=== PATIENT | female | born 1945 | race Caucasian/White ===

== ENCOUNTER 2017-12-11 11:47 | Emergency (ER) | payer MEDICARE, OTHER ==
[~2017-12-11] VITALS: Ht 160 cm; Wt 79.4 kg
[~2017-12-11 11:47] MED LIST: ADV250/50 INH; AMLO2.5T74 PO; AMLO2.5T75 PO; BEPO10DR3 OP; CA C1TAB85 PO; CHOL100058 PO; CICL6.1H NS; CLON-303 *; DICY10CA62 PO; FRO2.5PT PO; FROV2.5T6 PO; GENTAMICIN NASAL; LAMO100T52 PO; LEVO750T44 PO; LOR10 PO; LORA10TA2 PO; MET50 PO; METO25TA93 PO; MON10 PO; MONT10TA PO; NAS20R NS; NOR5/325 PO; OMEP-153 PO; OMEP40CA48 PO; OXYC-865 PO; PRE20 PO; PRED-1 PO; QUE25 PO; SIMV-49 PO; SOLI10TA8 PO; SPIR25TA78 PO; TOLT4CAP; TOLT4CAP13 PO; TOPI50TA99 PO; TRA50 PO; TRAZ-133 PO; TRAZ-163 PO; VENL37.594 PO; WARF5TAB23 PO; [UNRECOGNIZED DRUG - CODE] PO
--- NOTE | 2017-12-11 11:56 | ER Report ---
History and Physical Time Seen By MD: 11:56 HPI/ROS CHIEF COMPLAINT: Left-sided chest pain HISTORY OF PRESENT ILLNESS: 72-year-old female patient presents to emergency room with complaint of left-sided chest pain. Patient states that started this morning. She states when she woke up she was having pain seemed to be more towards the left shoulder. She states that since the day has progressed the pain has moved over to the left side of the chest enhanced since some pain shooting down the left arm. Patient denies any shortness of breath, although she states she did recently get over the flu at which time she states that she did have improvement in the shortness of breath. Patient denies having any fevers, chills, nausea, vomiting or diarrhea. Patient has not taken any medication for this. Patient states that she's been up moving around he states that did not increase her pain. REVIEW OF SYSTEMS: Respiratory: No cough, no dyspnea. Cardiovascular: As noted above Gastrointestinal: No vomiting, no abdominal pain. Musculoskeletal: No back pain. Allergies: Coded Allergies: diphenhydramine (Verified Allergy, Mild, 09/27/17) Home Meds Active Scripts Ibuprofen (IBUPROFEN) 600 Mg Tablet, 1 TAB PO Q6H, #28 TAB Prov:JESSEE RYAN [employer] ST[employer]GR[employer]HER 12/11/17 Reported Medications Montelukast Sodium (SINGULAIR) 10 Mg Tablet, 1 TAB PO QDAY Y for ALLERGY SYMPTOMS, TAB 09/27/17 Frovatriptan Succinate (FROVA) 2.5 Mg Tablet, 2.5 MG PO PRN 09/27/17 Trazodone Hcl (TRAZODONE HCL) 100 Mg Tablet, 100 MG PO QHS, TAB 09/27/17 Simvastatin (SIMVASTATIN) 20 Mg Tablet, 20 MG PO HS, TAB 09/27/17 Tolterodine Tartrate (Tolterodine Tartrate ER) 4 Mg Cap.er.24h, QHS 09/27/17 Omeprazole (OMEPRAZOLE) 40 Mg Capsule.dr, 40 MG PO QDAY, CAP 09/27/17 Warfarin Sodium (WARFARIN SODIUM) 5 Mg Tablet, 2.5 MG PO QWEEK, TAB 05/03/17 Venlafaxine Hcl (EFFEXOR XR) 37.5 Mg Cap.er.24h, 37.5 MG PO DAILY 07/20/13 Lamotrigine (LAMOTRIGINE) 100 Mg Tablet, 100 MG PO BID 07/20/13 Temazepam (RESTORIL) 30 Mg Capsule, 30 MG PO HS 07/20/13 Cholecalciferol (Vitamin D3) (VITAMIN D) 1,000 Unit Capsule, 1000 UNIT PO HS 07/20/13 Metoprolol Tartrate (METOPROLOL TARTRATE) 25 Mg Tablet, 0.5 TAB PO BID TAKE ONE TABLET BY MOUTH TWICE A DAY 07/20/13 Amlodipine Besylate (NORVASC) 2.5 Mg Tablet, 1 TAB PO QDAY TAKE ONE TABLET BY MOUTH EVERY DAY at pm 07/20/13 Past Medical/Surgical History Patient has a past medical history of migraines, hypertension, hyperlipidemia, dry cough, multiple rib fractures, anxiety, depression. Patient has a surgical history of facial bone surgery, tonsillectomy, partial hysterectomy, D&C 2, P 3, stomach polyps, pacemaker placed, initial valve replaced. Patient has a family medical history of cancer, CAD. Reviewed Nurses Notes: Yes Hx Smoking: No Smoking Status: Never Smoker Exposure to Second Hand Smoke?: No Constitutional Vital Sign - Last 24 Hours 12/11/17 12/11/17 12/11/17 12/11/17 11:47 11:52 11:53 12:00 Temp 98.1 Pulse ??? 90 Resp 18 B/P (MAP) 151/88 151/88 (109) 142/83 (102) Pulse Ox 88 O2 Delivery Room Air 12/11/17 12/11/17 12/11/17 12/11/17 12:02 12:17 12:30 12:32 Pulse 79 ??? 81 Resp 27 7 B/P (MAP) 159/85 (109) Pulse Ox 94 92 12/11/17 12/11/17 12/11/17 12/11/17 12:47 13:00 13:02 13:07 Pulse 83 ??? 85 Resp 5 21 B/P (MAP) ???/??? (1665) Pulse Ox 90 91 12/11/17 12/11/17 12/11/17 12/11/17 13:22 13:30 13:37 13:52 Pulse 81 86 80 Resp 16 10 18 B/P (MAP) 157/90 (112) Pulse Ox 92 86 12/11/17 12/11/17 12/11/17 12/11/17 14:00 14:07 14:22 14:27 Pulse 78 79 80 Resp 9 12 B/P (MAP) ???/??? (8965) 12/11/17 12/11/17 14:32 14:32 Temp 98.4 Pulse ??? Physical Exam General Appearance: The patient is alert, has no immediate need for airway protection and no current signs of toxicity. ENT: Tympanic membranes are pearly-bhatti, auditory canals are patent, mucus mucous membranes are moist. Respiratory: Chest is non tender, lungs are clear to auscultation. Cardiac: regular rate and rhythm Gastrointestinal: Abdomen is soft and non tender, no masses, bowel sounds normal. Musculoskeletal: Neck: Neck is supple and non tender. Extremities have full range of motion and are non tender. Patient did have some tenderness right around the shoulder. Skin: No rashes or lesions. DIFFERENTIAL DIAGNOSIS: After history and physical exam differential diagnosis was considered for chest pain including but not limited to myocardial ischemia, pericarditis pulmonary embolus, chest wall pain, pleural inflammation and pulmonary infectious causes. Medical Decision Making Data Points Result Diagram: 12/11/17 1200 12/11/17 1200 Laboratory Hematology Test 12/11/17 12:00 12/11/17 13:48 Red Blood Count 4.21 M/uL (4.17-5.56) Mean Corpuscular Volume 96.8 fL (80.0-96.0) Mean Corpuscular Hemoglobin 32.7 pg (26.0-33.0) Mean Corpuscular Hemoglobin Concent 33.8 g/dL (32.0-36.0) Red Cell Distribution Width 13.6 % (11.5-14.5) Mean Platelet Volume 7.2 fL (7.2-11.1) Neutrophils (%) (Auto) 56.2 % (39.4-72.5) Lymphocytes (%) (Auto) 30.4 % (17.6-49.6) Monocytes (%) (Auto) 10.8 % (4.1-12.4) Eosinophils (%) (Auto) 1.2 % (0.4-6.7) Basophils (%) (Auto) 1.4 % (0.3-1.4) Nucleated RBC Relative Count (auto) 0.1 /100WBC Neutrophils # (Auto) 3.5 K/uL (2.0-7.4) Lymphocytes # (Auto) 1.9 K/uL (1.3-3.6) Monocytes # (Auto) 0.7 K/uL (0.3-1.0) Eosinophils # (Auto) 0.1 K/uL (0.0-0.5) Basophils # (Auto) 0.1 K/uL (0.0-0.1) Nucleated RBC Absolute Count (auto) 0.01 K/uL Prothrombin Time 15.3 seconds (12.0-14.4) Prothromb Time International Ratio 1.20 Activated Partial Thromboplast Time 27 seconds (23-35) Sodium Level 138 mmol/L (137-145) Potassium Level 4.1 mmol/L (3.5-5.0) Chloride Level 96 mmol/L (98-107) Carbon Dioxide Level 29 mmol/L (22-31) Blood Urea Nitrogen 17 mg/dl (7-18) Creatinine 0.90 mg/dl (0.52-1.04) Glomerular Filtration Rate Calc > 60.0 Random Glucose 83 mg/dl (75-110) Calcium Level 9.6 mg/dl (8.4-10.2) Total Bilirubin 0.6 mg/dl (0.2-1.3) Aspartate Amino Transf (AST/SGOT) 26 U/L (0-35) Alanine Aminotransferase (ALT/SGPT) 30 U/L (0-56) Alkaline Phosphatase 68 U/L (0-126) B-Type Natriuretic Peptide 126 pg/ml (0-100) Total Protein 7.4 gm/dl (6.3-8.2) Albumin 4.3 g/dl (3.5-5.0) Troponin I < 0.012 ng/ml Chemistry Test 12/11/17 12:00 12/11/17 13:48 White Blood Count 6.2 k/uL (4.5-11.0) Red Blood Count 4.21 M/uL (4.17-5.56) Hemoglobin 13.8 g/dL (12.0-16.0) Hematocrit 40.8 % (34.0-47.0) Mean Corpuscular Volume 96.8 fL (80.0-96.0) Mean Corpuscular Hemoglobin 32.7 pg (26.0-33.0) Mean Corpuscular Hemoglobin Concent 33.8 g/dL (32.0-36.0) Red Cell Distribution Width 13.6 % (11.5-14.5) Platelet Count 239 K/uL (150-450) Mean Platelet Volume 7.2 fL (7.2-11.1) Neutrophils (%) (Auto) 56.2 % (39.4-72.5) Lymphocytes (%) (Auto) 30.4 % (17.6-49.6) Monocytes (%) (Auto) 10.8 % (4.1-12.4) Eosinophils (%) (Auto) 1.2 % (0.4-6.7) Basophils (%) (Auto) 1.4 % (0.3-1.4) Nucleated RBC Relative Count (auto) 0.1 /100WBC Neutrophils # (Auto) 3.5 K/uL (2.0-7.4) Lymphocytes # (Auto) 1.9 K/uL (1.3-3.6) Monocytes # (Auto) 0.7 K/uL (0.3-1.0) Eosinophils # (Auto) 0.1 K/uL (0.0-0.5) Basophils # (Auto) 0.1 K/uL (0.0-0.1) Nucleated RBC Absolute Count (auto) 0.01 K/uL Prothrombin Time 15.3 seconds (12.0-14.4) Prothromb Time International Ratio 1.20 Activated Partial Thromboplast Time 27 seconds (23-35) Glomerular Filtration Rate Calc > 60.0 Calcium Level 9.6 mg/dl (8.4-10.2) Total Bilirubin 0.6 mg/dl (0.2-1.3) Aspartate Amino Transf (AST/SGOT) 26 U/L (0-35) Alanine Aminotransferase (ALT/SGPT) 30 U/L (0-56) Alkaline Phosphatase 68 U/L (0-126) B-Type Natriuretic Peptide 126 pg/ml (0-100) Total Protein 7.4 gm/dl (6.3-8.2) Albumin 4.3 g/dl (3.5-5.0) Troponin I < 0.012 ng/ml Coagulation Test 12/11/17 12:00 Prothrombin Time 15.3 seconds Prothromb Time International Ratio 1.20 Activated Partial Thromboplast Time 27 seconds EKG/Imaging EKG Interpretation 12 lead EKG: Rhythm: normal sinus rhythm [place]: normal QRS: White QRS noted. ST segments: normal Imaging 2 VIEWS CHEST INDICATION: Left-sided chest pain. COMPARISON: 09/27/2017. FINDINGS: Cardiomediastinal silhouette and pulmonary vessels within normal limits. Sternotomy changes. Right subclavian pacemaker remains in place and unchanged. Valve replacement changes. There is no focal infiltrate or lobar consolidation. There is no pneumothorax or pleural effusion. No nodule. Some mild scarring seen in both lower lobes. Upper abdomen is unremarkable. No acute bony abnormality. Old right rib fractures. Previous fracture proximal right humerus. IMPRESSION: 1. No acute cardiopulmonary process. Report Dictated By: Gustavo Shell at 12/11/2017 12:50 PM Report E-Signed By: Gustavo Shell at 12/11/2017 12:52 PM ED Course/Re-evaluation ED Course Patient was admitted and examined, history and physical were obtained. Frontal diagnoses were considered. On examination patient did have tenderness along the pectoralis muscle just adjacent to the shoulder. Workup for chest pain was done including CBC, CMP, troponin, EKG, chest x-ray. Lab results and imaging results were negative. I did go ahead and repeat a troponin at a four-hour jackeline. That was also negative. I discussed the findings with the patient and her . We will go ahead and discharge him home at this time. We will place her on an anti-inflammatory for her pain. I believe this is likely a strain of her pectoralis muscle. I discussed this with the patient and her they verbalized understanding and agreement with plan. Decision to Disposition Date: Dec 11, 2017 Decision to Disposition Time: 14:20 Depart Departure Latest Vital Signs Vital Signs Date Time Temp Pulse Resp B/P (MAP) Pulse Ox O2 Delivery O2 Flow Rate FiO2 12/11/17 14:32 98.4 12/11/17 14:32 ??? 12/11/17 14:22 12 12/11/17 14:00 ???/??? (1665) 12/11/17 13:37 86 12/11/17 11:52 Room Air Impression: Primary Impression: Chest pain Condition: Improved Disposition: HOME OR SELF-CARE Referrals: KENNETH CORDERO MD (PCP) New Scripts Ibuprofen (IBUPROFEN) 600 Mg Tablet 1 TAB PO Q6H, #28 TAB Prov: JESSEE RYAN 12/11/17 Patient Instructions: Chest Wall Pain (ED) Additional Instructions: Limit activity by pain. Increase fluid intake. Get plenty of rest. Return to the ER if condition worsens. Take the medication as prescribed. Follow up with your primary care provider in the next week. Problem Qualifiers Primary Impression: Chest pain Chest pain type: other chest pain Qualified Codes: R07.89 - Other chest pain JESSEE RYAN Dec 11, 2017 11:56
[2017-12-11] MEDS ORDERED: ASPIRIN 81 MG CHEW PO ONE (12:05)
[2017-12-11 12:13] LABS: PLATELET COUNT, AUTOMATED 239 K/uL (150-450)
[2017-12-11 12:18] LABS: INR 1.2
--- NOTE | 2017-12-11 12:19 | EKG ---
FACILITY: [facility] PATIENT NAME: KENNY MCELROY : [id number] MR: [id number] V: [id number] EXAM DATE: ORDERING PHYSICIAN: JESSEE RYAN TECHNOLOGIST: Feliberto Mccrary Reason : Blood Pressure : / mmHG Vent. Rate : 078 BPM Atrial Rate : 078 BPM P-R Int : 192 ms QRS Dur : 142 ms QT Int : 438 ms P-R-T Axes : 046 -70 074 degrees QTc Int : 499 ms Atrial sensing ventricular paced rhythm When compared with ECG of 27-SEP-2017 17:28, Unchanged Confirmed by PHILIP ISSA ([id number]) on 12/11/2017 7:16:52 PM Referred By: Confirmed By:PHILIP ISSA
--- NOTE | 2017-12-11 12:56 | RADIOLOGY IMAGING REPORT ---
FACILITY: [facility] PATIENT NAME: Shanae Watkins : 1945 MR: [id number] V: [id number] EXAM DATE: ORDERING PHYSICIAN: JESSEE RYAN TECHNOLOGIST: Location: [facility] Patient: Shanae Watkins : 1945 Visit/Account:[id number] Date of Sevice: 12/11/2017 2 VIEWS CHEST INDICATION: Left-sided chest pain. COMPARISON: 09/27/2017. FINDINGS: Cardiomediastinal silhouette and pulmonary vessels within normal limits. Sternotomy changes. Right murrell bclavian pacemaker remains in place and unchanged. Valve replacement changes. There is no focal infiltrate or lobar consolidation. There is no pneumothorax or pleural effusion. No nodule. Some mild scarring seen in both lower lobes. Upper abdomen is unremarkable. No acute bony abnormality. Old right rib fractures. Previous fracture proximal right humerus. IMPRESSION: 1. No acute cardiopulmonary process. Report Dictated By: Gustavo Shell at 12/11/2017 12:50 PM Report E-Signed By: Gustavo Shell at 12/11/2017 12:52 PM WSN:[id number]
[2017-12-11] MEDS ORDERED: IBUP600T22 PO (14:26)
== END 2017-12-11 14:37 | disposition home or self-care (01) ==
LOC: ER 11:55
DX: R07.89 Other chest pain (principal)
CPT/HCPCS: 36415; 71046; 83880; 84484; 85025; 85610; 85730; 93005; 99284; A9270; 82040; 82247; 82310; 82374; 82435; 82565; 82947; 84075; 84132; 84155; 84295; 84450; 84460; 84520

== ENCOUNTER → 2017-12-26 | Outpatient (CLI) | payer MEDICARE, OTHER ==
[~2017-12-26] MED LIST changes: +IBUP600T22 PO; +IOPAMIDOL 76% 75 ML INFUS BTL 75 ML ONE
--- NOTE | 2017-12-26 16:38 | RADIOLOGY IMAGING REPORT ---
FACILITY: [facility] [place] PATIENT NAME: Shanae Watkins : 1945 MR: [id number] V: [id number] EXAM DATE: ORDERING PHYSICIAN: MARCELO HUANG TECHNOLOGIST: Location: [facility] Patient: Shanae Watkins : 1945 Visit/Account:[id number] Date of Sevice: 12/26/2017 EXAMINATION: CT Head without intravenous contrast CT Head with intravenous contrast HISTORY: Memory loss. Altered mental status. Headache. TECHNIQUE: Contiguous axial images were obtained from the skull base to the vertex before and after IV contrast. Sagittal and coronal reformatted images are also submitted. One of the following dose optimization techniques was utilized in the performance of this exam: Autom ated exposure control; adjustment of the mA and/or kV according to the patient's size; or use of an i terative reconstruction technique. Specific details can be referenced in the facility's radiology C T exam operational policy. CONTRAST: 75 mL of IV Isovue-370 COMPARISON: None. FINDINGS: Brain volume: Normal. Ventricles: Negative. Acute ischemic changes: None. Hemorrhage: None. Masses / edema: None. Enhancement: Negative. Choi-white: Small focus of encephalomalacia in the right superior cerebellum. Otherwise negative. White matter: Negative. Vessels: Bilateral carotid siphon calcifications. Otherwise negative. Extra-axial: Negative. Calvarium / skull base: Negative. Visualized sinuses / orbits: Intraosseous screws in the left orbital rim. IMPRESSION: No acute intracranial abnormality or mass. Report Dictated By: Shar Leslie MD at 12/26/2017 4:29 PM Report E-Signed By: Shar Leslie MD at 12/26/2017 4:34 PM WSN:[id number]
== END ==
LOC: CT 03:34
PROVIDERS: ATTEND Family Medicine
DX: I65.23 Occlusion and stenosis of bilateral carotid arteries (principal); G93.89 Other specified disorders of brain; Z96.9 Presence of functional implant, unspecified
CPT/HCPCS: 36415; 70470; 82565; Q9967

== ENCOUNTER → 2017-12-30 | Outpatient (REF) | payer MEDICARE, OTHER ==
[~2017-12-30] MED LIST changes: -IOPAMIDOL 76% 75 ML INFUS BTL 75 ML ONE
== END ==
LOC: ZZSTITCHES 17:27
PROVIDERS: ATTEND Physician Assistant
DX: R35.0 Frequency of micturition (principal); R30.0 Dysuria
CPT/HCPCS: 87088

== ENCOUNTER 2018-01-06 14:58 | Emergency (ER) | payer MEDICARE, OTHER ==
[~2018-01-06 14:58] MED LIST changes: -GLUC1TAB78; -OMEG-96 PO
--- NOTE | 2018-01-06 15:09 | ER Report ---
History and Physical Time Seen By MD: 15:04 (ROSENDO SANTIAGO MD) HPI/ROS CHIEF COMPLAINT: Fall HISTORY OF PRESENT ILLNESS: 72-year-old female on Coumadin for heart problems presents with laceration to posterior scalp after fall states lost balance while cleaning a high shelf and fell down one step may have twisted her knee left knee hurts most severely no headache nausea vomiting neck pain or stiffness however she is bleeding from a lack on her scalp per EMS who provided pressure dressing for the ride over. Has other concerns or complaints today no syncope no loss of consciousness and no seizure activity. No neurological deficits. Receive 5 mg of morphine prior to arrival by EMS. REVIEW OF SYSTEMS: Constitutional: No fever, no chills. Eyes: No discharge. ENT: No sore throat. Cardiovascular: No chest pain, no palpitations. Respiratory: No cough, no shortness of breath. Gastrointestinal: No abdominal pain, no vomiting. Genitourinary: No hematuria. Musculoskeletal: Left knee pain difficulty with straightening otherwise negative Skin: No rashes. Neurological: No headache. No focal neurological deficits (ROSENDO SANTIAGO MD) Allergies: Coded Allergies: diphenhydramine (Verified Allergy, Mild, 01/06/18) Home Meds Active Scripts Ibuprofen (IBUPROFEN) 600 Mg Tablet, 1 TAB PO Q6H, #28 TAB Prov:JESSEE RYAN SOFTWARE SALES MANAGER 12/11/17 Reported Medications Glucosamine/D3/Boswellia Veronica (Osteo Bi-Flex Tablet) 1,500 Mg-400 Unit-100 Mg Tablet 01/06/18 Holstein-3 Fatty Acids/Fish Oil (OMEGA 3 1,000 MG SOFTGEL) 1 Each Capsule, 1 EACH PO QDAY, CAPSULE 01/06/18 Montelukast Sodium (SINGULAIR) 10 Mg Tablet, 1 TAB PO QDAY Y for ALLERGY SYMPTOMS, TAB 09/27/17 Frovatriptan Succinate (FROVA) 2.5 Mg Tablet, 2.5 MG PO PRN 09/27/17 Trazodone Hcl (TRAZODONE HCL) 100 Mg Tablet, 100 MG PO QHS, TAB 09/27/17 Simvastatin (SIMVASTATIN) 20 Mg Tablet, 20 MG PO HS, TAB 09/27/17 Tolterodine Tartrate (Tolterodine Tartrate ER) 4 Mg Cap.er.24h, QHS 09/27/17 Omeprazole (OMEPRAZOLE) 40 Mg Capsule.dr, 40 MG PO QDAY, CAP 09/27/17 Warfarin Sodium (WARFARIN SODIUM) 5 Mg Tablet, 2.5 MG PO QWEEK, TAB 05/03/17 Venlafaxine Hcl (EFFEXOR XR) 37.5 Mg Cap.er.24h, 37.5 MG PO DAILY 07/20/13 Lamotrigine (LAMOTRIGINE) 100 Mg Tablet, 100 MG PO BID 07/20/13 Temazepam (RESTORIL) 30 Mg Capsule, 30 MG PO HS 07/20/13 Cholecalciferol (Vitamin D3) (VITAMIN D) 1,000 Unit Capsule, 1000 UNIT PO HS 07/20/13 Metoprolol Tartrate (METOPROLOL TARTRATE) 25 Mg Tablet, 0.5 TAB PO BID TAKE ONE TABLET BY MOUTH TWICE A DAY 07/20/13 Amlodipine Besylate (NORVASC) 2.5 Mg Tablet, 1 TAB PO QDAY TAKE ONE TABLET BY MOUTH EVERY DAY at pm 07/20/13 Past Medical/Surgical History Patient has a past medical history of migraines, hypertension, hyperlipidemia, dry cough, multiple rib fractures, anxiety, depression. Patient has a surgical history of facial bone surgery, tonsillectomy, partial hysterectomy, D&C 2, P 3, stomach polyps, pacemaker placed, initial valve replaced. (CESAR SHARMA MD) Hx Smoking: No Smoking Status: Never Smoker Exposure to Second Hand Smoke?: No (ROSENDO SANTIAGO MD) Constitutional Vital Sign - Last 24 Hours 01/06/18 01/06/18 01/06/18 01/06/18 14:58 15:00 15:01 15:15 Temp 97.6 Pulse ??? 80 Resp 20 B/P (MAP) 112/62 (79) 112/62 81/49 (60) Pulse Ox 90 O2 Delivery Room Air 01/06/18 01/06/18 01/06/18 01/06/18 15:30 15:45 15:45 15:58 Pulse ??? B/P (MAP) 136/47 (76) 121/80 (94) 132/72 (92) 01/06/18 01/06/18 01/06/18 01/06/18 16:00 16:08 16:15 16:30 B/P (MAP) 121/80 (94) 125/72 (89) 134/76 (95) 129/90 (103) 01/06/18 01/06/18 01/06/18 01/06/18 16:45 17:00 17:15 17:50 Pulse 98 B/P (MAP) 119/58 (78) 104/46 (65) 107/62 (77) Pulse Ox 100 01/06/18 18:20 Pulse 97 Pulse Ox 95 Intake and Output 01/06/18 01/06/18 01/07/18 15:00 23:00 07:00 Output Total 250 ml Balance -250 ml (CESAR SHARMA MD) Physical Exam General Appearance: The patient is alert, has no immediate need for airway protection and no signs of toxicity. No acute distress Eyes: Pupils equal and round no pallor or injection. ENT, Mouth: Mucous membranes are moist. Respiratory: There are no retractions, lungs are clear to auscultation. Cardiovascular: Regular rate and rhythm. No murmurs gallops or rubs Gastrointestinal: Abdomen is soft and non tender, no masses, bowel sounds normal. Neurological: Normal gross neurological exam Skin: Scalp LAC see procedure note for details Musculoskeletal: Neck is supple non tender. Left knee tenderness overlying the proximal tibia, minimal LCL and MCL tenderness, otherwise Extremities are nontender, nonswollen and have full range of motion. No edema DIFFERENTIAL DIAGNOSIS: After history and physical exam differential diagnosis was considered for a fracture versus dislocation versus sprain or strain versus effusion or hemarthrosis, scalp LAC versus head fracture no external signs of intracranial hemorrhage (ROSENDO SANTIAGO MD) Medical Decision Making Data Points Laboratory Hematology Test 01/06/18 00:00 01/06/18 15:17 Prothrombin Time 23.6 seconds (12.0-14.4) Prothromb Time International Ratio 2.04 Activated Partial Thromboplast Time 34 seconds (23-35) Red Blood Count 4.16 M/uL (4.17-5.56) Mean Corpuscular Volume 96.8 fL (80.0-96.0) Mean Corpuscular Hemoglobin 32.4 pg (26.0-33.0) Mean Corpuscular Hemoglobin Concent 33.5 g/dL (32.0-36.0) Red Cell Distribution Width 13.0 % (11.5-14.5) Mean Platelet Volume 7.0 fL (7.2-11.1) Neutrophils (%) (Auto) 63.5 % (39.4-72.5) Lymphocytes (%) (Auto) 26.3 % (17.6-49.6) Monocytes (%) (Auto) 9.0 % (4.1-12.4) Eosinophils (%) (Auto) 0.7 % (0.4-6.7) Basophils (%) (Auto) 0.5 % (0.3-1.4) Nucleated RBC Relative Count (auto) 0.0 /100WBC Neutrophils # (Auto) 5.0 K/uL (2.0-7.4) Lymphocytes # (Auto) 2.1 K/uL (1.3-3.6) Monocytes # (Auto) 0.7 K/uL (0.3-1.0) Eosinophils # (Auto) 0.1 K/uL (0.0-0.5) Basophils # (Auto) 0.0 K/uL (0.0-0.1) Nucleated RBC Absolute Count (auto) 0.00 K/uL Sodium Level 137 mmol/L (137-145) Potassium Level 4.3 mmol/L (3.5-5.0) Chloride Level 98 mmol/L (98-107) Carbon Dioxide Level 30 mmol/L (22-31) Blood Urea Nitrogen 13 mg/dl (7-18) Creatinine 0.80 mg/dl (0.52-1.04) Glomerular Filtration Rate Calc > 60.0 Random Glucose 103 mg/dl (75-110) Calcium Level 9.2 mg/dl (8.4-10.2) Troponin I < 0.012 ng/ml Chemistry Test 01/06/18 00:00 01/06/18 15:17 Prothrombin Time 23.6 seconds (12.0-14.4) Prothromb Time International Ratio 2.04 Activated Partial Thromboplast Time 34 seconds (23-35) White Blood Count 7.9 k/uL (4.5-11.0) Red Blood Count 4.16 M/uL (4.17-5.56) Hemoglobin 13.5 g/dL (12.0-16.0) Hematocrit 40.3 % (34.0-47.0) Mean Corpuscular Volume 96.8 fL (80.0-96.0) Mean Corpuscular Hemoglobin 32.4 pg (26.0-33.0) Mean Corpuscular Hemoglobin Concent 33.5 g/dL (32.0-36.0) Red Cell Distribution Width 13.0 % (11.5-14.5) Platelet Count 200 K/uL (150-450) Mean Platelet Volume 7.0 fL (7.2-11.1) Neutrophils (%) (Auto) 63.5 % (39.4-72.5) Lymphocytes (%) (Auto) 26.3 % (17.6-49.6) Monocytes (%) (Auto) 9.0 % (4.1-12.4) Eosinophils (%) (Auto) 0.7 % (0.4-6.7) Basophils (%) (Auto) 0.5 % (0.3-1.4) Nucleated RBC Relative Count (auto) 0.0 /100WBC Neutrophils # (Auto) 5.0 K/uL (2.0-7.4) Lymphocytes # (Auto) 2.1 K/uL (1.3-3.6) Monocytes # (Auto) 0.7 K/uL (0.3-1.0) Eosinophils # (Auto) 0.1 K/uL (0.0-0.5) Basophils # (Auto) 0.0 K/uL (0.0-0.1) Nucleated RBC Absolute Count (auto) 0.00 K/uL Glomerular Filtration Rate Calc > 60.0 Calcium Level 9.2 mg/dl (8.4-10.2) Troponin I < 0.012 ng/ml Coagulation Test 01/06/18 00:00 Prothrombin Time 23.6 seconds Prothromb Time International Ratio 2.04 Activated Partial Thromboplast Time 34 seconds ([facility] SERVICES[facility] MD) EKG/Imaging Imaging EXAMINATION: CT head without IV contrast HISTORY: Fall. Laceration. TECHNIQUE: Axial CT images of the head were obtained from the vertex to the skull base without IV contrast, with coronal and sagittal 2D reconstructed images. One of the following dose optimization techniques was utilized in the performance of this exam: Automated exposure control; adjustment of the mA and/ or kV according to the patient's size; or use of an iterative reconstruction technique. Specific details can be referenced in the facility's radiology CT exam operational policy. COMPARISON: 12/26/2017. FINDINGS: There is mild age-appropriate parenchymal volume loss, with stable mild patchy low attenuation in the deep white matter, compatible with chronic small vessel ischemic change. Stable small lacunar infarct in the right cerebellar hemisphere. No CT evidence of intracranial hemorrhage, mass lesion, or acute infarct. No midline shift or extra-axial fluid collections. Choi-white differentiation is maintained. Soft tissue swelling and laceration overlies the posterior right parietal calvarium. No underlying skull fracture. The calvarium is intact. The partially visualized paranasal sinuses and mastoid air cells are unopacified. IMPRESSION: 1. No evidence of intracranial hemorrhage or skull fracture. 2. Soft tissue swelling and laceration overlies the right parietal calvarium. No underlying skull fracture. 3. Stable mild chronic age-related changes, with a small old lacunar infarct in the right cerebellum. Report Dictated By: Delonte Diaz MD at 01/06/2018 5:16 PM EXAMINATION: CT cervical spine without IV contrast HISTORY: Fall. Laceration. TECHNIQUE: Thin axial CT images of the cervical spine were obtained without IV contrast, with sagittal and coronal 2D reconstructed images. One of the following dose optimization techniques was utilized in the performance of this exam: Automated exposure control; adjustment of the mA and/ or kV according to the patient's size; or use of an iterative reconstruction technique. Specific details can be referenced in the facility's radiology CT exam operational policy. COMPARISON: None. FINDINGS: The cervical spine is negative for acute fracture or subluxation. Normal alignment. Vertebral body height is maintained. Disc spaces are preserved, with slight degenerative endplate changes. There is moderate facet arthropathy along the mid and upper left cervical facet joints, greatest at C3-C4, mild right-sided facet arthropathy. The dens is intact. Normal alignment at the craniocervical junction. IMPRESSION: 1. No acute osseous findings along the cervical spine. Normal alignment. 2. Mild chronic degenerative changes along the cervical spine. Report Dictated By: Delonte Diaz MD at 01/06/2018 5:20 PM Exam type: HIP LEFT History: tibia pain and tenderness after fall Comparison: None. Findings: Two views of the left hip reveal no gross evidence of acute fracture or dislocation. No significant arthritic changes identified within the hips. There is a battery pack with electrode projecting over the mid pelvis. IMPRESSION: 1. No gross evidence of acute fracture-dislocation involving the left hip Report Dictated By: Cathy Adamson MD at 01/06/2018 4:32 PM Examination: KNEE 3 VIEW LEFT Comparison: None. History: Fall. Knee pain. Findings: Mildly comminuted and displaced fracture of the medial and central tibial plateau potentially with involvement of the tibial spines. There is at least 3 mm of articular surface incongruity in the central medial compartment. Femorotibial alignment is otherwise maintained. Moderate joint effusion. IMPRESSION: Mildly comminuted and displaced left tibial plateau fracture. Report Dictated By: Trace Clark MD at 01/06/2018 4:04 PM Examination: KNEE LEFT W/O CONTRAST Comparison: Knee radiographs same day. History: tibial plateau fracture Procedure: Multiplanar noncontrast CT left knee. One of the following dose optimization techniques was utilized in the performance of this exam: Automated exposure control; adjustment of the mA and/ or kV according to the patient's size; or use of an iterative reconstruction technique. Specific details can be referenced in the facility's radiology CT exam operational policy. Findings: Proximal tibia metaphysis and tibial plateau comminuted and displaced fracture. A dominant obliquely oriented fracture fragment involves the posteromedial tibial plateau and extends into the posterior tibial spine. This fracture component is associated with 6 mm of articular surface depression along the central-medial portion of the weightbearing plateau as well as 4 mm of incongruity through the posterior tibial spine. A minimally displaced fracture plane extends anteriorly through the anterior portion of the medial tibial plateau. A separate dominant comminuted and depressed fracture along the medial and central portion of the lateral tibial plateau with extension into anterior tibial spine results in 5 mm of articular surface depression but only minimal malalignment at the tibial spine. An irregular fragmented fracture plane extends transversely along the posterior margin of the lateral tibial plateau but there is no definite involvement of the tibiofibular joint. Tibiofibular alignment is within normal limits. The anterolateral margin of the lateral tibial plateau appears intact. The visualized distal femur, proximal fibula, and patella are intact. Mild medial subluxation of the femur relative to the tibia but no evidence of suzie dislocation. The anterior cruciate and posterior cruciate ligaments are grossly intact as is the medial collateral ligament and lateral collateral ligamentous complex. If further imaging evaluation for soft tissue internal derangement is clinically indicated MRI could be performed. Moderate-sized lipohemarthrosis. IMPRESSION: 1. Complex intra-articular fracture of the proximal left tibial metaphysis involving the majority of the tibial plateau including the tibial spines as detailed above. 2. Mild medial subluxation of the femur relative to the tibia but no evidence of suzie dislocation. 3. Moderate size lipohemarthrosis. Report Dictated By: Trace Clark MD at 01/06/2018 5:56 PM (CESAR SHARMA MD) ED Course/Re-evaluation ED Course Plan of care discussed and agreed upon prior orders placed patient is on Coumadin will obtain platelets and PT/INR as well as CT head and neck after the fall to ensure no intracranial hemorrhage is present left knee films with suspicion for fracture. xray demonstrates fracture; case discussed with merchandising consultant: Dr. Delon Gimenez who will review films and call back. Recommends CT of L knee for further delineation of fracture. Dr. Fajardo paged to discuss. Case signed over to incoming doctor, Lucio Sharma, at change of shift. Procedure Laceration repair: Right posterior scalp size: 2cm Prep: Chlorhexidine scrub Local anesthesia: 1% lidocaine with epinephrine 5 mL's infiltrated locally Bleeding controlled: Direct pressure Irrigation: Copious normal saline under pressure with Zerowet after chlorhexidine Closure: 9 saúl were placed atraumatically Tolerated: Well Complication: None Decision to Disposition Date: Jan 06, 2018 (ROSENDO SANTIAGO MD) Clinical Indication for ER IV: IV Access ED Course I reviewed this case with Dr. Santiago at shift change and assumed care of the patient. Re-evaluation was done. She has a tibial plateau fracture, comminuted and displaced with depression of multiple fragments. Dr. Gimenez is here and she has received a CT scan. He reviewed this and saw the patient. Discussed with his orthopedic surgery colleagues and this is something that they would not be able to do here. Recommended that she be transferred to [facility]. Swelling of the knee area, however soft tissue, normal pulses and sensation without any signs of compartment syndrome at this time. Discussed with Dr. Mcnulty, trauma surgeon at [facility], who accepted the patient for transfer. We did use 80mg of IV Ketamine for sedation to place the leg in knee immobilizer. She tolerated this well. Used jaw thrust for about 1 minute during sedation to assist with breathing, otherwise tolerated well. Good pulses and cap refill after knee immobilizer placement. Decision to Disposition Date: Jan 06, 2018 Decision to Disposition Time: 19:00 (CESAR SHARMA MD) Depart Departure Latest Vital Signs Vital Signs Date Time Temp Pulse Resp B/P (MAP) Pulse Ox O2 Delivery O2 Flow Rate FiO2 01/06/18 18:20 97 95 01/06/18 17:15 107/62 (77) 01/06/18 15:01 97.6 20 Room Air (CESAR SHARMA MD) Impression: Primary Impression: Fall (on) (from) other stairs and steps, initial encounter Additional Impressions: Occipital scalp laceration Tibial plateau fracture, left Condition: Improved Referrals: KENNETH CORDERO MD (PCP) Problem Qualifiers Additional Impressions: Occipital scalp laceration Encounter type: initial encounter Qualified Codes: S01.01XA - Laceration without foreign body of scalp, initial encounter Tibial plateau fracture, left Encounter type: initial encounter Fracture type: closed Qualified Codes: S82.142A - Displaced bicondylar fracture of left tibia, initial encounter for closed fracture ROSENDO SANTIAGO MD Jan 06, 2018 15:09 CESAR SHARMA MD Jan 06, 2018 18:00
[2018-01-06] MEDS ORDERED: OMEG-96 PO (15:11)
[2018-01-06] MEDS ORDERED: GLUC1TAB78 (15:11)
[2018-01-06 15:32] LABS: PLATELET COUNT, AUTOMATED 200 K/uL (150-450)
--- NOTE | 2018-01-06 16:10 | RADIOLOGY IMAGING REPORT ---
FACILITY: [facility] PATIENT NAME: Shanae Watkins : 1945 MR: [id number] V: [id number] EXAM DATE: ORDERING PHYSICIAN: ROSENDO MELCHOR TECHNOLOGIST: Location: [facility] Patient: Shanae Watkins : 1945 Visit/Account:[id number] Date of Sevice: 01/06/2018 Examination: KNEE 3 VIEW LEFT Comparison: None. History: Fall. Knee pain. Findings: Mildly comminuted and displaced fracture of the medial and central tibial plateau potential ly with involvement of the tibial spines. There is at least 3 mm of articular surface incongruity in the central medial compartment. Femorotibial alignment is otherwise maintained. Moderate joint effusi on. IMPRESSION: Mildly comminuted and displaced left tibial plateau fracture. Report Dictated By: Trace Clark MD at 01/06/2018 4:04 PM Report E-Signed By: Trace Clark MD at 01/06/2018 4:06 PM WSN:[id number]
--- NOTE | 2018-01-06 16:38 | RADIOLOGY IMAGING REPORT ---
FACILITY: [facility] [place] PATIENT NAME: Shanae Watkins : 1945 MR: [id number] V: [id number] EXAM DATE: ORDERING PHYSICIAN: ROSENDO MELCHOR TECHNOLOGIST: Location: [facility] Patient: Shanae Watkins : 1945 Visit/Account:[id number] Date of Sevice: 01/06/2018 Exam type: HIP LEFT History: tibia pain and tenderness after fall Comparison: None. Findings: Two views of the left hip reveal no gross evidence of acute fracture or dislocation. No significant arthritic changes identified within the hips. There is a battery pack with electrode projecting over the mid pelvis. IMPRESSION: 1. No gross evidence of acute fracture-dislocation involving the left hip Report Dictated By: Cahty Adamson MD at 01/06/2018 4:32 PM Report E-Signed By: Cathy Adamson MD at 01/06/2018 4:33 PM WSN:[email or web address]
[2018-01-06] MEDS ORDERED: ONDANSETRON 4 MG/2 ML VIAL IVP ONE ×2 (16:50→16:55)
[2018-01-06] MEDS ORDERED: fentaNYL CITR 100 MCG/2 ML AMP IVP ONE ×3 (16:50→16:55)
[2018-01-06 17:15] VITALS: BP 107/62
--- NOTE | 2018-01-06 17:25 | RADIOLOGY IMAGING REPORT ---
FACILITY: [facility] [place] PATIENT NAME: Shanae Watkins : 1945 MR: [id number] V: [id number] EXAM DATE: ORDERING PHYSICIAN: ROSENDO MELCHOR TECHNOLOGIST: Location: [facility] [place] Patient: Shanae Watkins : 1945 Visit/Account:[id number] Date of Sevice: 01/06/2018 EXAMINATION: CT head without IV contrast HISTORY: Fall. Laceration. TECHNIQUE: Axial CT images of the head were obtained from the vertex to the skull base without IV c ontrast, with coronal and sagittal 2D reconstructed images. One of the following dose optimization techniques was utilized in the performance of this exam: Autom ated exposure control; adjustment of the mA and/or kV according to the patient's size; or use of an i terative reconstruction technique. Specific details can be referenced in the facility's radiology C T exam operational policy. COMPARISON: 12/26/2017. FINDINGS: There is mild age-appropriate parenchymal volume loss, with stable mild patchy low attenuation in the deep white matter, compatible with chronic small vessel ischemic change. Stable small lacunar infarc t in the right cerebellar hemisphere. No CT evidence of intracranial hemorrhage, mass lesion, or acute infarct. No midline shift or extra-a xial fluid collections. Choi-white differentiation is maintained. Soft tissue swelling and laceration overlies the posterior right parietal calvarium. No underlying sk ull fracture. The calvarium is intact. The partially visualized paranasal sinuses and mastoid air mercedes ls are unopacified. IMPRESSION: 1. No evidence of intracranial hemorrhage or skull fracture. 2. Soft tissue swelling and laceration overlies the right parietal calvarium. No underlying skull fra cture. 3. Stable mild chronic age-related changes, with a small old lacunar infarct in the right cerebellum. Report Dictated By: Delonte Diaz MD at 01/06/2018 5:16 PM Report E-Signed By: Delonte Diaz MD at 01/06/2018 5:20 PM WSN:[id number]
--- NOTE | 2018-01-06 17:28 | RADIOLOGY IMAGING REPORT ---
FACILITY: [facility] [place] [place] PATIENT NAME: Shanae Watkins : 1945 MR: [id number] V: [id number] EXAM DATE: ORDERING PHYSICIAN: ROSENDO MELCHOR TECHNOLOGIST: Location: [facility] [place] Patient: Shanae Watkins : 1945 Visit/Account:[id number] Date of Sevice: 01/06/2018 EXAMINATION: CT cervical spine without IV contrast HISTORY: Fall. Laceration. TECHNIQUE: Thin axial CT images of the cervical spine were obtained without IV contrast, with sagit ashley and coronal 2D reconstructed images. One of the following dose optimization techniques was utilized in the performance of this exam: Autom ated exposure control; adjustment of the mA and/or kV according to the patient's size; or use of an i terative reconstruction technique. Specific details can be referenced in the facility's radiology C T exam operational policy. COMPARISON: None. FINDINGS: The cervical spine is negative for acute fracture or subluxation. Normal alignment. Vertebral body he ight is maintained. Disc spaces are preserved, with slight degenerative endplate changes. There is moderate facet arthrop athy along the mid and upper left cervical facet joints, greatest at C3-C4, mild right-sided facet ar thropathy. The dens is intact. Normal alignment at the craniocervical junction. IMPRESSION: 1. No acute osseous findings along the cervical spine. Normal alignment. 2. Mild chronic degenerative changes along the cervical spine. Report Dictated By: Delonte Diaz MD at 01/06/2018 5:20 PM Report E-Signed By: Delonte Diaz MD at 01/06/2018 5:23 PM WSN:[id number]
[2018-01-06 18:07] LABS: INR 2.04
--- NOTE | 2018-01-06 18:14 | RADIOLOGY IMAGING REPORT ---
FACILITY: [facility] - [place] PATIENT NAME: Shanae Watkins : 1945 MR: [id number] V: [id number] EXAM DATE: ORDERING PHYSICIAN: ROSENDO MELCHOR TECHNOLOGIST: Location: [facility] Patient: Shanae Watkins : 1945 Visit/Account:[id number] Date of Sevice: 01/06/2018 Examination: KNEE LEFT W/O CONTRAST Comparison: Knee radiographs same day. History: tibial plateau fracture Procedure: Multiplanar noncontrast CT left knee. One of the following dose optimization techniques was utilized in the performance of this exam: Autom ated exposure control; adjustment of the mA and/or kV according to the patient's size; or use of an i terative reconstruction technique. Specific details can be referenced in the facility's radiology C T exam operational policy. Findings: Proximal tibia metaphysis and tibial plateau comminuted and displaced fracture. A dominant obliquely oriented fracture fragment involves the posteromedial tibial plateau and extends into the p osterior tibial spine. This fracture component is associated with 6 mm of articular surface depressio n along the central-medial portion of the weightbearing plateau as well as 4 mm of incongruity throug h the posterior tibial spine. A minimally displaced fracture plane extends anteriorly through the ant erior portion of the medial tibial plateau. A separate dominant comminuted and depressed fracture along the medial and central portion of the lat eral tibial plateau with extension into anterior tibial spine results in 5 mm of articular surface de pression but only minimal malalignment at the tibial spine. An irregular fragmented fracture plane ex tends transversely along the posterior margin of the lateral tibial plateau but there is no definite involvement of the tibiofibular joint. Tibiofibular alignment is within normal limits. The anterolate ral margin of the lateral tibial plateau appears intact. The visualized distal femur, proximal fibula, and patella are intact. Mild medial subluxation of the femur relative to the tibia but no evidence of suzie dislocation. The anterior cruciate and posterior cruciate ligaments are grossly intact as is the medial collateral ligament and lateral collateral ligamentous complex. If further imaging evaluation for soft tissue i nternal derangement is clinically indicated MRI could be performed. Moderate-sized lipohemarthrosis. IMPRESSION: 1. Complex intra-articular fracture of the proximal left tibial metaphysis involving the majority of the tibial plateau including the tibial spines as detailed above. 2. Mild medial subluxation of the femur relative to the tibia but no evidence of suzie dislocation. 3. Moderate size lipohemarthrosis. Report Dictated By: Trace Clark MD at 01/06/2018 5:56 PM Report E-Signed By: Trace Clark MD at 01/06/2018 6:10 PM WSN:[id number]
[2018-01-06] MEDS ORDERED: KETAMINE HCL 500 MG/5 ML VIAL IVP ONE (18:45)
== END 2018-01-06 19:30 | disposition short-term general hospital (02) ==
LOC: ER 15:08
DX: S82.142A Displaced bicondylar fracture of left tibia, initial encounter for closed fracture (principal); S01.01XA Laceration without foreign body of scalp, initial encounter; W10.9XXA Fall (on) (from) unspecified stairs and steps, initial encounter
CPT/HCPCS: 12001; 70450; 72125; 73502; 73562; 73700; 84484; 85025; 85610; 85730; 96374; 96375; 99152; 99285; J2405; J3010; L1830; 82310; 82374; 82435; 82565; 82947; 84132; 84295; 84520

== ENCOUNTER → 2018-01-06 | Outpatient (CLI) | payer MEDICARE, OTHER ==
[~2018-01-06] MED LIST changes: +GLUC1TAB78; +OMEG-96 PO
== END ==
LOC: AMB 14:18
PROVIDERS: ATTEND Nurse Practitioner
DX: S00.01XA Abrasion of scalp, initial encounter (principal); W08.XXXA Fall from other furniture, initial encounter; Y92.019 Unspecified place in single-family (private) house as the place of occurrence of the external cause
CPT/HCPCS: A0425; A0427

== ENCOUNTER → 2018-01-06 | Outpatient (CLI) | payer MEDICARE, OTHER | LOC: AMB 19:11 | PROVIDERS: ATTEND Nurse Practitioner | DX: S82.142A Displaced bicondylar fracture of left tibia, initial encounter for closed fracture (principal); S00.01XA Abrasion of scalp, initial encounter; W11.XXXA Fall on and from ladder, initial encounter; Y92.019 Unspecified place in single-family (private) house as the place of occurrence of the external cause | CPT/HCPCS: A0425; A0426 ==

== ENCOUNTER → 2018-08-12 | Outpatient (CLI) | payer MEDICARE, OTHER ==
[~2018-08-12] MED LIST changes: -AMLO2.5T74 PO; +AMLO2.5T76 PO; +GLUC1TAB78; +OMEG-96 PO; -TRAZ-163 PO; +TRAZ100T31 PO
[2018-08-12 12:29] LABS: INR 1.73
== END ==
LOC: LAB 11:58
PROVIDERS: ATTEND Internal Medicine Cardiovascular Disease
DX: I34.2 Nonrheumatic mitral (valve) stenosis (principal); Z95.2 Presence of prosthetic heart valve
CPT/HCPCS: 36415; 82040; 82247; 82310; 82374; 82435; 82565; 82947; 84075; 84132; 84155; 84295; 84450; 84460; 84520; 85027; 85610

== ENCOUNTER → 2018-10-28 | Outpatient (CLI) | payer MEDICARE, OTHER ==
[2018-10-28 14:59] LABS: INR 2.52
--- NOTE | 2018-10-28 15:28 | RADIOLOGY IMAGING REPORT ---
FACILITY: [facility] - [place] PATIENT NAME: Shanae Watkins : 1945 MR: [id number] V: [id number] EXAM DATE: ORDERING PHYSICIAN: NATALIA SHERIFF TECHNOLOGIST: Location: [facility] [place] Patient: Shanae Watkins : 1945 Visit/Account:[id number] Date of Sevice: 10/28/2018 CHEST PA AND LAT INDICATION: Preoperative, complete heart block COMPARISON: December 11, 2017 FINDINGS: Frontal and lateral views obtained. The cardiac silhouette is normal in size. Curviline ar mitral valve calcification is unchanged. Postoperative cardiac valve noted on lateral view. Dual -lead pacemaker is unchanged. Unchanged intact sternotomy wires. Unchanged curvilinear scarring in the bilateral lower lungs. Minimal curvilinear scarring in the satish phery of the left midlung is either new or is now visible secondary to positional differences. Otherwise clear lungs. No acute osseous abnormality. Unchanged chronic right rib fracture deformities. No pleural fluid. IMPRESSION: 1. No acute finding. 2. Unchanged small patches of curvilinear scarring in the bilateral lung bases. 3. Minimal scarring in the left mid lung is either new or new visible secondary to positional differ ences. Report Dictated By: Bala Rivera MD at 10/28/2018 3:18 PM Report E-Signed By: Bala Rivera MD at 10/28/2018 3:24 PM WSN:[id number]
== END ==
LOC: LAB 14:16
PROVIDERS: ATTEND Internal Medicine Cardiovascular Disease
DX: I44.2 Atrioventricular block, complete (principal); Z98.890 Other specified postprocedural states; I34.2 Nonrheumatic mitral (valve) stenosis
CPT/HCPCS: 36415; 71046; 82310; 82374; 82435; 82565; 82947; 84132; 84295; 84520; 85027; 85610

== ENCOUNTER → 2019-04-06 | Outpatient (CLI) | payer MEDICARE, OTHER ==
[~2019-04-06] MED LIST changes: -AMLO2.5T76 PO; +AMLO2.5T78 PO
--- NOTE | 2019-04-06 14:49 | RADIOLOGY IMAGING REPORT ---
[place] [facility] [place]: Shanae Watkins : 1945 MR: [id number] V: [id number] EXAM DATE: ORDERING PHYSICIAN: MARCELO HUANG TECHNOLOGIST: Location: [facility] Patient: Shanae Watkins : 1945 Visit/Account:[id number] Date of Sevice: 04/06/2019 Exam type: US VENOUS LOWER EXT LT History: Left lower extremity pain Comparison: None. Findings: Left lower extremity veins were imaged including the left common femoral vein greater saphenous vein superficial femoral vein popliteal vein posterior tibial vein peroneal vein and anterior tibial vein revealing no evidence of intraluminal thrombi. The veins were compressible and demonstrated augmenta tion IMPRESSION: 1. No sonographic evidence of DVT involving the left lower extremity veins A message was left for MARCELO HUANG at 04/06/2019 2:44 PM. Report Dictated By: Cathy Adamson MD at 04/06/2019 2:42 PM Report E-Signed By: Cathy Adamson MD at 04/06/2019 2:45 PM WSN:[email or web address]
== END ==
LOC: US 13:41
PROVIDERS: ATTEND Family Medicine
DX: M79.605 Pain in left leg (principal)

== ENCOUNTER → 2019-06-03 | Outpatient (CLI) | payer MEDICARE, OTHER | LOC: AUD 11:00 | PROVIDERS: ATTEND Otolaryngology | DX: H91.90 Unspecified hearing loss, unspecified ear (principal) | CPT/HCPCS: 92552 ==